=== PATIENT | male | born 1985 | race Two or more races ===

== ENCOUNTER 2019-03-14 10:38 | Day surgery (SDC) | payer MEDICARE ==
[2019-03-13 12:46] LABS: Basophils # (auto) 0 uL; Basophils % (auto) 0.7 % (0.0-2.0); Eosinophils # (auto) 0.1 uL; Eosinophils % (auto) 1.1 % (0.0-7.0); Hematocrit 47.7 % (41.0-53.0); Hemoglobin 15.8 g/dL (13.5-17.5); Lymphocytes # (auto) 1.3 uL; Mean Corpuscular Hemoglobin 32.2 pg (28.0-32.0); Mean Corpuscular Hgb Conc. 33.2 g/dL (32.0-36.0); Monocytes # (auto) 0.4 uL; Monocytes % (auto) 8.5 % (0.0-12.0); Neutrophils # (auto) 3.1 uL; Neutrophils % (auto) 63.7 % (37.0-80.0); Nucleated Red Blood Cells % 0.1 %; Platelet Count (auto) 155 10^3/uL (140-450); Red Blood Cells 4.92 10^6/uL (4.5-5.90); Red Cell Distribution Width 17.2 % (11.8-14.3); White Blood Cell 4.9 10^3/uL (4.4-10.8)
[2019-03-13 13:20] LABS: INR 1.01 (0.9-1.15); Partial Thromboplastin Time 28.2 sec (23.64-32.05)
[2019-03-13 13:21] LABS: Albumin 4.7 g/dL (3.4-5.0); Potassium 3.5 mmol/L (3.5-5.1)
[2019-03-13 13:24] LABS: BUN/Creatinine Ratio 3.1; Bilirubin, Total 1.6 mg/dL (0.2-1.0); Total Protein 8.8 g/dL (6.4-8.2)
[~2019-03-14] VITALS: Ht 172.7 cm; Wt 65.8 kg
[2019-03-14] MEDS ORDERED: ceFAZolin 1GM/50ML 50 ML IV ONE (12:08)
[2019-03-14] MEDS ORDERED: ROPIVACAINE 0.5% (5MG/ML) 20ML AMPULE IJ ONE (13:57)
[2019-03-14] MEDS ORDERED: MIDAZOLAM HCL 1MG/1ML-2 ML VIAL ONE (14:12)
[2019-03-14] MEDS ORDERED: PROPOFOL 10 MG/ML 20 ML IV ONE (14:12)
[2019-03-14] MEDS ORDERED: fentaNYL CITRATE 100 MCG/2 ML VL ONE ×2 (14:14→15:17)
[2019-03-14] MEDS ORDERED: ONDANSETRON HCL 4 MG/2 ML VIAL IV PRN (15:00)
[2019-03-14] MEDS ORDERED: hydrALAZINE HCL 20 MG/ML VL IV PRN (15:00)
[2019-03-14] MEDS ORDERED: ePHEDrine SULFATE 50 MG/ML AMP IV PRN (15:00)
[2019-03-14] MEDS ORDERED: fentaNYL CITRATE 100 MCG/2 ML VL IV PRN (15:00)
[2019-03-14 15:37] VITALS: BP 94/59
[2019-03-16] MEDS ORDERED: AML5T GT (18:54)
[2019-03-16] MEDS ORDERED: CLON0.1T PO (18:54)
== END 2019-03-14 15:45 | disposition home or self-care (01) ==
LOC: SUR 10:38
PROVIDERS: ATTEND Podiatrist Foot & Ankle Surgery
DX: M20.11 Hallux valgus (acquired), right foot (principal); M20.41 Other hammer toe(s) (acquired), right foot; I12.0 Hypertensive chronic kidney disease with stage 5 chronic kidney disease or end stage renal disease; N18.6 End stage renal disease; F12.90 Cannabis use, unspecified, uncomplicated; Z99.2 Dependence on renal dialysis; Z79.01 Long term (current) use of anticoagulants; Z79.899 Other long term (current) drug therapy; Z98.890 Other specified postprocedural states
CPT/HCPCS: 28285; 28296; 36415; 73620; 80053; 85025; 85610; 85730; 88304; 88311; 93005; C1713; C1769; J0690; J2250; J2704; J2795; J3010